=== PATIENT | female | born 2000 | race Caucasian/White ===

== ENCOUNTER 2022-10-18 16:34 | Emergency (ER) | payer MEDICAID ==
[~2022-10-18] VITALS: Ht 160 cm; Wt 77.1 kg
--- NOTE | 2022-10-18 16:46 | NUR ---
PT IS IN ROOM # 1B. DR AREVALO EVALUATED THE PT.
[2022-10-18] MEDS ORDERED: ONDA4TAB5 PO (16:50)
--- NOTE | 2022-10-18 16:55 | NUR ---
PT WAS D/C'd TO HOME. D/C INSTRUCTIONS GIVEN TO THE PT BY DR AREVALO.
[2022-10-18 16:56] VITALS: BP 134/76
== END 2022-10-18 16:56 | disposition home or self-care (01) ==
LOC: ER 16:39
DX: R11.2 Nausea with vomiting, unspecified (principal); R42 Dizziness and giddiness; Z86.16 Personal history of COVID-19
CPT/HCPCS: A4663